=== PATIENT | male | born 1945 | race Caucasian/White ===

== ENCOUNTER → 2017-09-05 | Outpatient (CLI) | payer MEDICARE ==
[2017-09-05] MEDS: REGADENOSON 0.4 MG/5 ML DISP.SYRIN. IV (10:24)
== END | disposition home or self-care (01) ==
LOC: NM 08:08
DX: I48.91 Unspecified atrial fibrillation (principal); R06.00 Dyspnea, unspecified
CPT/HCPCS: 78452; 93017; 96374; 96375; 96376; A9500; J2785

== ENCOUNTER 2017-10-29 10:15 | Day surgery (SDC) | payer MEDICARE ==
[~2017-10-29 10:15] MED LIST: 0.9 % SODIUM CHLORIDE 10 ML DISP.SYRIN. IV; LIDOCAINE 1% PF 2 ML VIAL. ID; MORPHINE SULFATE 2 MG/ML DISP.SYRIN. IV; MORPHINE SULFATE 4 MG/ML DISP.SYRIN. IV; ONDANSETRON PF 4 MG/2 ML VIAL. IV; PROCHLORPERAZINE 10 MG/2 ML VIAL. IV; fentaNYL PF VIAL 100 MCG/2 ML VIAL IV
[2017-10-29] MEDS: IV RINGERS,LACTATED 1000ML 1,000 ML IV (10:52)
[2017-10-29 10:55] LABS: INR 2.8 (0.8-1.1); PROTHROMBIN TIME PATIENT 27.7 SEC (11.7-14.0)
[2017-10-29] MEDS ORDERED: LIDOCAINE 2% VISCOUS 15 ML SOLUTION. (11:16)
[2017-10-29] MEDS ORDERED: LIDOCAINE 2% TOPICAL JELLY 5GM TUBE. TP (11:17)
[2017-10-29] MEDS ORDERED: BENZOCAINE ONE 20% MUCOSAL SPRAY. (11:17)
[2017-10-29 11:23] LABS: ANION GAP 6 (6-14); BLOOD UREA NITROGEN 17 mg/dL (8-26); CALCIUM 9.2 mg/dL (8.5-10.1); CARBON DIOXIDE 31 mmol/L (21-32); CHLORIDE 103 mmol/L (98-107); CREATININE 1.1 mg/dL (0.7-1.3); GFR 66.2; GLUCOSE 115 mg/dL (70-99); MAGNESIUM 1.7 mg/dL (1.8-2.4); POTASSIUM 4.3 mmol/L (3.5-5.1); SODIUM 140 mmol/L (136-145)
[2017-10-29] MEDS ORDERED: PROPOFOL 40 ML IV (11:31)
[2017-10-29] MEDS: LIDOCAINE 2% VISCOUS 15 ML SOLUTION. SWSW (12:04)
[2017-10-29] MEDS: BENZOCAINE ONE 20% MUCOSAL SPRAY. MM (12:04)
[2017-10-29] MEDS: LIDOCAINE 2% TOPICAL JELLY 5GM TUBE. TP (12:04)
[2017-10-29] MEDS ORDERED: MORPHINE SULFATE 4 MG/ML DISP.SYRIN. IV (14:30)
== END 2017-10-29 13:45 | disposition home or self-care (01) ==
LOC: SURG 10:15
DX: I48.91 Unspecified atrial fibrillation (principal); I10 Essential (primary) hypertension; E78.5 Hyperlipidemia, unspecified; R65.10 Systemic inflammatory response syndrome (SIRS) of non-infectious origin without acute organ dysfunction; Z82.49 Family history of ischemic heart disease and other diseases of the circulatory system; Z79.899 Other long term (current) drug therapy; Z79.01 Long term (current) use of anticoagulants
CPT/HCPCS: 36415; 80048; 83735; 85610; 93005; 93312; 93320; 93325; J2704